=== PATIENT | female | born 1950 | race Caucasian/White ===

== ENCOUNTER 2019-12-14 09:55 | Inpatient (IN) ==
[2019-12-14] MEDS ORDERED: ZOFRAN IV PRN (10:41)
[2019-12-14] MEDS: NS + KCL 20 MEQ 1,000 ML IV SCH ×2 (10:45→12:52)
--- NOTE | 2019-12-14 11:13 | EKG Report ---
Test Performed on : 12/14/2019 11:01:35 AM Test Reason : abd pain Blood Pressure : / mmHG Vent. Rate : 071 BPM Atrial Rate : 071 BPM P-R Int : 152 ms QRS Dur : 090 ms QT Int : 400 ms P-R-T Axes : 061 -25 000 degrees QTc Int : 434 ms Normal sinus rhythm. with sinus arrhythmia. Minimal voltage criteria for LVH, may be normal variant Borderline ECG No previous ECGs available Confirmed by Tariq Hopper MD ([id number]) on 12/15/2019 12:23:11 PM
--- NOTE | 2019-12-14 11:18 | Diag Imaging Result Doc PS360 ---
EXAM: CHEST-PORTABLE INDICATION: abd pain TECHNIQUE: One view COMPARISON: 10/07/2019 FINDINGS: The lungs are grossly clear. There is no discrete pleural fluid collection or pneumothorax. The cardiomediastinal silhouette and central vasculature are grossly unremarkable. IMPRESSION: No evidence of acute pathology by plain radiograph. Electronically signed by Camden Álvarez 12/14/2019 11:19 AM
--- NOTE | 2019-12-14 11:18 | Diag Imaging Result Doc PS360 ---
EXAM: KUB ABDOMEN INDICATION: abd pain TECHNIQUE: One view COMPARISON: None. FINDINGS: There are unremarkable bowel gas and stool patterns. There is no obstructive bowel pattern. There is no evidence of large volume free abdominal gas. There is no evidence of organomegaly. IMPRESSION: No evidence of acute pathology by plain radiograph. Electronically signed by Camden Álvarez 12/14/2019 11:19 AM
[2019-12-14 11:36] LABS: URINE SOURCE CLEAN CATCH
[2019-12-14 11:41] LABS: BILIRUBIN URINE NEGATIVE (NEGATIVE); BLOOD URINE NEGATIVE (NEGATIVE); COLOR YELLOW; GLUCOSE URINE NEGATIVE (NEGATIVE); KETONE URINE NEGATIVE (NEGATIVE); LEUKOCYTES URINE TRACE (NEGATIVE); NITRITE URINE NEGATIVE (NEGATIVE); PH URINE 6.5; PROTEIN URINE TRACE mg/dL (NEGATIVE); SP GRAVITY URINE 1.024; TURBIDITY URINE CLEAR (CLEAR); UROBILINOGEN URINE NORMAL (NORMAL)
[2019-12-14 11:42] LABS: UR EPITHELIAL CELLS <10 /HPF (<10); URINE BACTERIA NEGATIVE /HPF; URINE RBC <10 /HPF (<10); URINE WBC <10 /HPF (<10)
[2019-12-14] MEDS: DILAUDID IV PRN ×3 (11:57→21:40)
[2019-12-14 11:59] LABS: BASO# 0.04 X1000 (0.0-0.2); BASO% 0.3 % (0.0-0.8); EOS# 0.01 X1000 (0.0-0.7); EOS% 0.1 % (0.0-10.0); HEMATOCRIT 40.7 % (37.0-47.0); HEMOGLOBIN 13.6 g/dL (12.0-16.0); IMM GRAN# 0.04 X1000 (0.0-0.04); IMM GRAN% 0.3 % (0.0-0.5); LYMPH# 1.11 X1000 (1.2-3.4); MCH 29.1 PG (27-31); MCHC 33.4 g/dL (33-37); MONO# 0.57 X1000 (0.11-0.59); MONO% 3.6 % (1.7-9.3); MPV 10.7 FL (7.4-10.4); NEUT# 14.13 X1000 (1.4-6.5); NEUT% 88.7 % (42.2-75.2); PLT 223 X1000 (130-400); RBC 4.68 XMIL (4.2-5.4); RDW 11.9 % (11.5-14.5)
[2019-12-14 12:08] LABS: AGAP 14; ALB/GLOB RATIO 1.7; ALBUMIN 4.4 g/dL (3.5-5.0); ALKALINE PHOSPHATASE 90 U/L (32-104); AMYLASE 67 U/L (20-200); BUN 14 mg/dL (8-22); CALCIUM 10.2 mg/dL (8.8-10.2); CHLORIDE 98 mmol/L (98-107); COSMO 285; CREATININE 0.8 mg/dL (0.5-0.9); ESTIMATED GFR > 60; GLUCOSE 149 mg/dL (70-104); GOT 20 U/L (10-30); GPT 17 U/L (10-36); SODIUM 141 mmol/L (136-145); TCO2 29 mmol/L (25-35); TOTAL BILIRUBIN 0.45 mg/dL (0.20-1.00)
[2019-12-14 12:09] LABS: BANDS 2 % (0-1); CK PROFILE 104 U/L (24-173); EOS 2 % (1-10); LIPASE 14 U/L (13-60); LYMPHS 12 % (21-51); MONO 2 % (1-9); SEGS 82 % (42-75)
[2019-12-14] MEDS: PROTONIX IV SCH (12:52)
--- NOTE | 2019-12-14 13:41 | Diag Imaging Result Doc PS360 ---
CT ABD/PELVIS W/PO AND IV CON - 12/14/2019 INDICATION: abd pain COMPARISON: None FINDINGS: The lung bases are clear and the heart size is normal. There is moderate diffuse fatty change of the liver. The gallbladder is somewhat distended. There are some small dense stones in the gallbladder. No significant surrounding free fluid. The pancreas, spleen, adrenals, and kidneys enhance normally. No bowel obstruction or inflammation. Scattered diverticula of the descending and sigmoid colon. Uterus is absent. Urinary bladder and rectum are normal. There are moderate degenerative changes of the spine. No acute or suspicious bony lesion. IMPRESSION: 1. Gallstones in the gallbladder with gallbladder distention. Recommend a right upper quadrant ultrasound. 2. Hepatic steatosis. 3. Mild diverticulosis coli. This exam was performed using automated exposure control, adjustment of mA or kV according to patient size, and/or use of iterative reconstruction technique Electronically signed by Aden Wise 12/14/2019 1:39 PM
[2019-12-14] MEDS: HYDROCHLOROTHIAZIDE PO SCH (14:36)
[2019-12-14] MEDS: AVAPRO PO SCH (15:21)
[2019-12-14] MEDS: ZEBETA PO SCH (15:22)
[2019-12-14] MEDS: ZOSYN 3.375 GM in NS 50 ML IV SCH ×2 (16:26→21:40)
[2019-12-14] MEDS: CYMBALTA PO SCH (16:56)
--- NOTE | 2019-12-14 21:46 | HISTORY AND PHYSICAL ---
CHIEF COMPLAINT: Abdominal pain. HISTORY OF PRESENT ILLNESS: Ms. Sesay is a 69-year-old white female patient complaining of pain in the abdomen. The patient was okay yesterday evening, and last night started having pain in the abdomen which was diffuse but on both sides of the abdomen, more so in the right upper abdomen, moderate pain. The patient claims the pain was going to her chest. The patient was not able to sleep well. She did have nausea. The patient vomited twice, but it was mainly clear liquid. The patient did have chills at times. Had pain from the upper abdomen going to her back. The patient came to the office for evaluation. The patient had significant tenderness in the abdomen, much more localized to the right upper quadrant. I evaluated the patient and decided to admit her for observation and further care. The patient denied any diarrhea. No blood or mucus in the stool. No hematemesis or melena. The patient denied any heat. No dysphagia or odynophagia. No history of abdominal trauma. The patient had a CT scan of the abdomen and pelvis done, which did reveal gallstones and gallbladder distention, hepatic steatosis and mild diverticulosis coli. The patient denied any atypical chest pain. No sweating. No heat or cold intolerance. Denied any cough expectoration or hemoptysis. At times, constipation. The patient does have polyuria and polydipsia. No dysuria or hematuria. No recent weight loss or weight gain. The patient does have fatigue and generalized pain. She is getting a diagnosis of fibromyalgia. No further history available at this time. ALLERGIES: No known drug allergies. MEDICATIONS: Include Cymbalta, Zebeta, hydrochlorothiazide, Avapro, Synthroid, Pravachol and Prilosec. PAST MEDICAL HISTORY: Significant for hypertension, hypothyroidism hyperlipidemia, gastritis and reflux disease, fibromyalgia and osteoarthritis. PERSONAL HISTORY: . Nonsmoker. Denied alcohol or substance abuse. FAMILY HISTORY: Significant for 3 sisters who had cholecystectomies, 1 sister with anemia. Father had a massive KS at age 60. He of pneumonia. Father also had throat cancer. Mother is alive, 95 years old, and has cancer in the neck area, the details of which patient does not know. Coronary artery disease and KS at age at 85. REVIEW OF SYSTEMS: As per HPI. PHYSICAL EXAMINATION: GENERAL: Elderly white female patient, in no acute distress. VITAL SIGNS: Blood pressure 171/93 pulse 72, respiration 18, temperature 98.2. SKIN: Normal turgor. No rash or petechiae. HEAD: Atraumatic, normocephalic. [place] conjunctivae. Anicteric sclerae. Extraocular muscle movement normal. Fundus cannot be penetrated. Good oral hygiene. No tonsillopharyngeal congestion or exudate. Ears and nose benign. NECK: Supple. No JVD, thyromegaly or lymphadenopathy. CHEST: Bilateral good air entry present. No rales or rhonchi. CARDIOVASCULAR: S1 and S2 heard. No gallop or thrill. ABDOMEN: Soft, globular. Bowel sounds present. Diffuse tenderness all over, much more in the right upper quadrant and epigastrium. No guarding or rigidity. EXTREMITIES: No cyanosis, clubbing. No acute DVT. Peripheral pulsation intact. TRAM OPERATOR: Alert, awake oriented x3. No focalities. MUSCULOSKELETAL: Crepitation in both the knee joints. No acute synovitis. IMAGING: Abdominal x-ray was benign. I also did a chest x-ray, which was also benign. LABORATORY DATA: Revealed leukocytosis with left shift. Electrolytes were benign. Amylase and lipase were normal. Urinalysis results reviewed. CONSIDERATIONS: Abdominal pain. CT revealed gallstones. Possibility of early cholecystitis cannot be ruled out. Other problems include fatty liver, gastritis, reflux disease, hypertension fibromyalgia, urinary incontinence, hypertension hyperlipidemia, history of sleep apnea. PLAN: Admit the patient. IV antibiotics. Close observation. Telemetry monitoring, oxygen. The patient has a history of sleep apnea. I discussed her presentation with the surgeon, Dr. Rai. Will keep her n.p.o. cc: Franc Clayton MD
--- NOTE | 2019-12-15 02:28 | GENERAL SURGERY CONSULTATION ---
DATE: 12/14/2019 REQUESTING PHYSICIAN: Franc Clayton MD. REASON FOR CONSULTATION: Cholecystitis. HISTORY OF PRESENT ILLNESS: A 69-year-old female with abdominal pain who was a direct admit from Dr. Clayton. She had imaging that seems to suggest cholecystitis. She is having pain in the right upper quadrant. She has had pain like this before but never to this extent, it never lasted this long. She has been admitted, started on IV antibiotics and pain medicine. I was asked to weigh an opinion. Patient is feeling a little bit better now. PAST MEDICAL HISTORY: Hypertension, history of cholesterol issues, history gastroesophageal reflux disease, history of hypothyroidism, history of obesity. PAST SURGICAL HISTORY: Includes tonsillectomy, hysterectomy. SOCIAL HISTORY: Lives at home. ALLERGIES: None. HOME MEDICATIONS: Currently being compiled, MAR reviewed. FAMILY HISTORY: Reviewed with the patient and noncontributory. REVIEW OF SYSTEMS: Full 14 systems reviewed and negative except as specified in HPI. PHYSICAL EXAMINATION: Vital Signs: Patient is currently afebrile. Her vital signs stable. General: No acute distress. HEENT: Normocephalic, atraumatic. Pupils equal, round, reactive to light. Mucous membranes moist. Oropharynx benign. Neck: Supple. Trachea midline. Cardiovascular: Regular rate and rhythm. Lungs: Grossly clear. Abdomen: Soft, tender to palpation in the right upper quadrant. Extremities: Moves all extremities. Neurologic: Grossly intact. Skin: No signs of jaundice. Vascular: All extremities perfused. LABORATORY: Reviewed. White blood count 15. Remainder of labs reviewed. IMAGING: Reviewed and noted above. ASSESSMENT AND PLAN: A 69-year-old female with cholecystitis. Cholecystitis. At this time, we will plan on surgical intervention. Discussed with her the risks, benefits, and alternatives of the procedure. Risks including, but not limited to, bleeding, infection, risk of anesthesia, risk of common bile duct injury and bile leak, risk of injuring other organs discussed. She voiced understanding and wished to proceed with the procedure. We will plan on doing this tomorrow. cc: MD Franc Young MD
[2019-12-15] MEDS: ZOSYN 3.375 GM in NS 50 ML IV SCH ×3 (05:37→19:00)
[2019-12-15] MEDS: DILAUDID IV PRN ×2 (05:44→19:00)
[2019-12-15] MEDS: SYNTHROID PO SCH (06:02)
[2019-12-15] MEDS: PRAVACHOL PO SCH ×2 (06:02→21:35)
[2019-12-15] MEDS: NS + KCL 20 MEQ 1,000 ML IV SCH ×2 (08:09→12:19)
[2019-12-15] MEDS: CYMBALTA PO SCH (08:10)
[2019-12-15] MEDS: HYDROCHLOROTHIAZIDE PO SCH (08:10)
[2019-12-15] MEDS: ZEBETA PO SCH (08:10)
[2019-12-15 08:11] LABS: BASO# 0.19 X1000 (0.0-0.2); BASO% 1.2 % (0.0-0.8); EOS# 0.01 X1000 (0.0-0.7); EOS% 0.1 % (0.0-10.0); HEMATOCRIT 38.9 % (37.0-47.0); HEMOGLOBIN 12.5 g/dL (12.0-16.0); IMM GRAN# 0.03 X1000 (0.0-0.04); IMM GRAN% 0.2 % (0.0-0.5); LYMPH# 1.65 X1000 (1.2-3.4); LYMPH% 10.7 % (20.5-51.1); MCH 29.8 PG (27-31); MCHC 32.1 g/dL (33-37); MCV 92.6 FL (81-99); MONO# 0.99 X1000 (0.11-0.59); MONO% 6.4 % (1.7-9.3); MPV 10.5 FL (7.4-10.4); NEUT# 12.51 X1000 (1.4-6.5); NEUT% 81.4 % (42.2-75.2); PLT 192 X1000 (130-400); RDW 12.5 % (11.5-14.5); WBC 15.38 X1000 (4.8-10.8)
[2019-12-15] MEDS: AVAPRO PO SCH (08:11)
--- NOTE | 2019-12-15 08:27 | PROGRESS NOTE ---
DATE: 12/15/2019 SUBJECTIVE: Ms. Sesay is feeling better. She still has some pain in the abdomen. No nausea or vomiting. Denied any chest pain or palpitations. Patient evaluated by surgeon, and scheduled to have surgery around 2:00 in the afternoon today. No dysuria or hematuria. OBJECTIVE: Vital signs: As noted. Neck: Supple. No JVD. Lungs: Bilateral good air entry present. CVS: S1 and S2 heard. Abdomen: Soft. Tenderness in the right upper quadrant less. Extremities: No cyanosis or clubbing. No acute DVT. WASHER REPAIRMAN: Alert, awake. Able to move all 4 limbs. PROBLEM LIST: 1. Acute gallstone cholecystitis. 2. Hypertension. 3. Hypothyroidism. 4. Gastritis and reflux disease Morning blood work is pending. Clinically, patient seems to be doing better. The patient is scheduled to have cholecystectomy today. The risk and benefits of surgery discussed with the patient. The patient understood and agreed. cc: Franc Clayton MD
[2019-12-15 08:28] LABS: ALB/GLOB RATIO 1.5; ALBUMIN 3.7 g/dL (3.5-5.0); CALCIUM 8.6 mg/dL (8.8-10.2); POTASSIUM 3.7 mmol/L (3.5-5.1); TOTAL BILIRUBIN 1.45 mg/dL (0.20-1.00); TOTAL PROTEIN 6.1 g/dL (6.3-8.3)
[2019-12-15] MEDS: PROTONIX IV SCH (09:44)
[2019-12-15] MEDS: SODIUM CHLORIDE 0.9% INJ SCH (09:44)
--- NOTE | 2019-12-15 10:43 | GENERAL SURGERY PROGRESS NOTE ---
DATE: 12/15/2019 SUBJECTIVE: Patient seems to be doing fine. No major issues. OBJECTIVE: Vital Signs: Patient is currently afebrile. Her vital signs are stable. General: No acute distress. HEENT: Normocephalic, atraumatic. Pupils equal, round, reactive to light. Mucous membranes moist. Oropharynx benign. Neck: Supple. Trachea midline. Cardiovascular: Regular rate and rhythm. Lungs: Grossly clear. Abdomen: Soft. Some tenderness in the right upper quadrant but no peritoneal signs. Extremities: Moves all extremities. Neurologic: Grossly intact. Skin: No signs of jaundice. Vascular: All extremities perfused. LABORATORY DATA: None this morning as of yet. ASSESSMENT AND PLAN: A 69-year-old female with cholecystitis. Cholecystitis. At this time, we will plan on surgical intervention today. Discussed with her the risks, benefits, and alternatives of the procedure. We will have her scheduled. cc: MD Franc Young MD
[2019-12-15] MEDS ORDERED: OFIRMEV 1000 MG/ISOTONIC SOLN 1,000 MG/100 ML BOTTLE IV ONE (11:52)
[2019-12-15] MEDS ORDERED: VERSED ONE (15:03)
[2019-12-15] MEDS ORDERED: DIPRIVAN 1% ONE (15:04)
[2019-12-15] MEDS ORDERED: FENTANYL ONE (15:04)
[2019-12-15] MEDS ORDERED: MARCAINE 0.25% PF ONE (15:33)
--- NOTE | 2019-12-15 17:54 | OPERATIVE NOTE ---
PROCEDURE DATE: 12/15/2019 PREOPERATIVE DIAGNOSIS: Cholecystitis. POSTOPERATIVE DIAGNOSIS: Acute cholecystitis. PROCEDURE: Laparoscopic cholecystectomy. SURGEON: Tayo Rai MD. NURSING EDUCATOR: Dr. Barrow. Dr. Barrow assisted with the entirety of the case. His presence was crucial in identification of anatomy. INTRAOPERATIVE FINDINGS: Inflamed gallbladder that was very thickened and friable. The gallbladder fossa was also friable. There was very thickened cystic duct, not amenable to clips. COMPLICATIONS: None at time of dictation. EBL: 50 mL. SPECIMENS REMOVED: Gallbladder. BRIEF HISTORY: A 69-year-old female presenting with right upper quadrant pain. She was identified to have cholecystitis. [place] she would benefit from cholecystectomy. The risks, benefits, and alternatives were discussed. All questions answered. DESCRIPTION OF PROCEDURE: After informed consent was obtained, patient brought to the operative theatre, transferred to the operative table in supine position. General endotracheal anesthesia was then performed without complication. A formal time-out was then performed confirming patient, date, procedure. All in agreement. At that time, attention was turned to the abdomen. An infraumbilical incision was made through which using Optiview technique we inserted 11 mm trocar, connected insufflation. Pneumoperitoneum was achieved. Under direct visualization, we placed three more trocars, all 5 mm, one subxiphoid, two in the right upper quadrant. After this, the gallbladder was identified, after reestablishing pneumoperitoneum. It was densely inflamed. We had to aspirate it to be able to grasp it. We grasped it and retracted it cephalad. This was very difficult. The gallbladder itself was very friable. With some difficulty we were able to isolate the cystic artery, after achieving the critical view of safety, and doubly clipped and ligated it. The cystic duct appeared very thickened and not amenable to clips. We were able to get around it and to the infundibulum. Again, we were able to achieve what looked like the critical view of safety. Given how thick it was, we transitioned the subxiphoid trocar to a 12 mm trocar, inserted a laparoscopic stapler and stapled across the common bile duct. The laparoscopic stapler stapled across the cystic duct. We were able to visualize what appeared to be the common bile duct deep to us, but again the tissue was very friable. We then dissected the gallbladder off the gallbladder fossa. The gallbladder fossa was very friable, but we maintained hemostasis with electrocautery. We placed the gallbladder into the EndoCatch. We then irrigated out the abdomen, several liters of fluid, placed Surgicel in the gallbladder fossa and placed a drain from the most lateral trocar site. We removed all trocars, disconnected insufflation, and brought the gallbladder out through the infraumbilical incision which had to be significantly enlarged to accommodate the thickened gallbladder. We were able to bring it out. We secured the drain in place with a drain stitch and then closed the infraumbilical incision with 0 Vicryl [id number] stitch x2. We then closed all trocar sites with 4-0 Monocryl. The patient tolerated the procedure well. We will watch her overnight. I already updated her primary care physician, Dr. Clayton. cc: MD Franc Young MD
[2019-12-15] MEDS: NORCO-10 PO PRN (21:51)
[2019-12-16] MEDS: DILAUDID IV PRN (02:21)
[2019-12-16] MEDS: ZOSYN 3.375 GM in NS 50 ML IV SCH ×3 (02:21→14:03)
[2019-12-16] MEDS: SYNTHROID PO SCH (06:10)
[2019-12-16] MEDS: NORCO-10 PO PRN ×3 (06:11→18:52)
[2019-12-16] MEDS: NS + KCL 20 MEQ 1,000 ML IV SCH (06:15)
--- NOTE | 2019-12-16 06:27 | GENERAL SURGERY PROGRESS NOTE ---
DATE: 12/16/2019 SUBJECTIVE: Patient seems to be doing okay. She has got muscle soreness from her incisions. Otherwise, she says she is doing okay. OBJECTIVE: Vital Signs: Patient is currently afebrile. Her vital signs are stable. General: No acute distress. Cardiovascular: Regular rate and rhythm. Lungs: Grossly clear. Abdomen: Soft, appropriately tender. BOAZ drain in place with serosanguineous output, more on the sanguinous side. ASSESSMENT AND PLAN: A 77-year-old female status post laparoscopic cholecystectomy. Postoperative state. At this time, she seems to be doing well. We will keep the [place] drain in place. I think it is reasonable to consider discharge if she seems to have her pain controlled. We will defer to her primary care physician. cc: MD Franc Young MD
[2019-12-16 07:01] LABS: BASO# 0.02 X1000 (0.0-0.2); BASO% 0.2 % (0.0-0.8); EOS# 0.02 X1000 (0.0-0.7); EOS% 0.2 % (0.0-10.0); HEMATOCRIT 32.2 % (37.0-47.0); HEMOGLOBIN 10.3 g/dL (12.0-16.0); IMM GRAN# 0.02 X1000 (0.0-0.04); IMM GRAN% 0.2 % (0.0-0.5); LYMPH# 1.85 X1000 (1.2-3.4); LYMPH% 15.5 % (20.5-51.1); MCH 29.5 PG (27-31); MCV 92.3 FL (81-99); MONO# 0.67 X1000 (0.11-0.59); MONO% 5.6 % (1.7-9.3); MPV 10.2 FL (7.4-10.4); NEUT# 9.32 X1000 (1.4-6.5); NEUT% 78.3 % (42.2-75.2); PLT 141 X1000 (130-400); RBC 3.49 XMIL (4.2-5.4); RDW 12.3 % (11.5-14.5)
[2019-12-16 07:43] LABS: AGAP 8; ALB/GLOB RATIO 1.1; ALKALINE PHOSPHATASE 59 U/L (32-104); BUN 9 mg/dL (8-22); CALCIUM 8.2 mg/dL (8.8-10.2); CHLORIDE 104 mmol/L (98-107); COSMO 280; CREATININE 0.9 mg/dL (0.5-0.9); ESTIMATED GFR > 60; GLUCOSE 135 mg/dL (70-104); GOT 26 U/L (10-30); GPT 19 U/L (10-36); MAGNESIUM 1.6 mg/dL (1.5-2.7); POTASSIUM 3.5 mmol/L (3.5-5.1); SODIUM 140 mmol/L (136-145); TCO2 28 mmol/L (25-35); TOTAL BILIRUBIN 0.98 mg/dL (0.20-1.00); TOTAL PROTEIN 5.8 g/dL (6.3-8.3)
[2019-12-16] MEDS: AVAPRO PO SCH (08:37)
[2019-12-16] MEDS: SODIUM CHLORIDE 0.9% INJ SCH (08:38)
[2019-12-16] MEDS: HYDROCHLOROTHIAZIDE PO SCH (08:38)
[2019-12-16] MEDS: PROTONIX IV SCH ×2 (08:38→13:46)
[2019-12-16] MEDS: CYMBALTA PO SCH (08:38)
[2019-12-16] MEDS: ZEBETA PO SCH (08:39)
--- NOTE | 2019-12-16 11:18 | PROGRESS NOTE ---
DATE: 12/16/2019 SUBJECTIVE: Ms. Sesay is doing fair. She does have some soreness of the abdominal wall. No nausea or vomiting. She denied any fever or chills. No typical chest pain. The patient underwent cholecystectomy yesterday. Operative note reviewed. OBJECTIVE: Vital Signs: Noted. Neck: Supple. No JVD. Lungs: Bibasilar crepitations. Heart: S1 and S2 heard. Abdomen: Soft. No distention. Bowel sounds present. Extremities: No cyanosis or clubbing. No acute DVT. Central Nervous System: Alert, awake, able to move all 4 limbs. ASSESSMENT AND PLAN: The patient does have soreness in the upper abdomen. Patient is on a clear liquid diet. I am going to increase to full liquid diet. Her BOAZ drain is in place. I will try to stop IV fluid, ambulate the patient in the room and hallway, and will reevaluated the patient and then will make further recommendations about discharge. Her problems include acute cholecystitis, hypertension, hypothyroidism. cc: Franc Clayton MD
[2019-12-16 15:16] VITALS: BP 147/71
[2019-12-16] MEDS ORDERED: PRAVACHOL PO SCH (21:00)
--- NOTE | 2019-12-17 15:37 | DISCHARGE SUMMARY ---
ADMISSION DATE: 12/16/2019 DISCHARGE DATE: 12/17/2019 FINAL DISCHARGE DIAGNOSES: 1. Acute gallstone cholecystitis. 2. Hypertension. 3. Hyperlipidemia. 4. Hypothyroidism. HISTORY OF PRESENT ILLNESS: Ms. Sesay, a 69-year-old white female patient, admitted with abdominal pain, fever chills. The rest of the information from admission history and physical. HOSPITAL COURSE: Patient was started on IV fluid, IV antibiotics. Surgical consult obtained with Dr. Rai. The patient underwent cholecystectomy. The patient had an inflamed gallbladder; it was thickened and friable. The gallbladder foci was also friable. There was very thickened cystic duct. The patient is doing better. I talked to the surgeon this morning. According to surgeon, patient is ready to be discharged in the morning. I watched patient. She is doing better. She does have some soreness, but patient is able to go to the bathroom. She is tolerating full liquid diet well. Her vital signs stable. I evaluated the patient in the evening, discussed with her about post cholecystectomy care diet. Follow up with me next week Thursday or Thursday. I am going to give her Augmentin for a few days. Discussed side effects and precaution. The patient is going home with BOAZ drain, teaching her how to manage the drain. Follow up with surgeon as scheduled. In case of more distress, call us back or go to the emergency room. Blood work done this morning: Hemoglobin 10.3, hematocrit 32.3. Electrolytes were fairly benign. Overall discharge condition satisfactory. In case of more distress, call us back or go to emergency room. Her CT scan revealed gallstone in the gallbladder with gallbladder distention, hepatic steatosis and mild diverticulosis. cc: Franc Clayton MD
== END 2019-12-16 20:10 | disposition home or self-care (01) | DRG 419 ==
LOC: DIRADM → EDIPHOLD 09:55 → 4N 16:45
PROVIDERS: ADMIT Internal Medicine; ATTEND Internal Medicine